=== PATIENT | male | born 1990 | race Caucasian/White ===

== ENCOUNTER 2024-09-25 14:41 | Inpatient (IN) | payer SELFPAY ==
[2024-09-25] MEDS ORDERED: ONDANSETRON *ODT* 4 MG TABLET SL PRN (15:13)
[2024-09-25] MEDS ORDERED: BISMUTH SUBSALICYLATE 524 MG/30 ML PO PRN (15:13)
[2024-09-25] MEDS ORDERED: ACETAMINOPHEN 325 MG TABLET (FP) PO PRN (15:13)
[2024-09-25] MEDS ORDERED: POLYETHYLENE GLYCOL (HEALTHYLAX) 3350 17 GM PACKET PO PRN (15:13)
[2024-09-25] MEDS ORDERED: IBUPROFEN 600 MG TABLET (FP) PO PRN (15:13)
[2024-09-25] MEDS ORDERED: BENZONATATE 200 MG CAPSULE PO PRN (15:13)
[2024-09-25] MEDS ORDERED: NALOXONE (NARCAN) HCL 4 MG/0.1 ML SPRAY NS PRN (15:13)
[2024-09-25] MEDS ORDERED: IBUPROFEN 400 MG TABLET (FP) PO PRN (15:13)
[2024-09-25] MEDS ORDERED: MAG HYDROX/AL HYDROX/SIMETH 30 ML UNIT-DOSE CUP PO PRN (15:13)
[2024-09-25] MEDS ORDERED: DICYCLOMINE HCL 10 MG CAPSULE PO PRN (15:13)
[2024-09-25] MEDS ORDERED: MAGNESIUM HYDROX 2400MG/30ML ORAL SUSPENSION 30 ML CUP PO PRN (15:13)
[2024-09-25] MEDS ORDERED: LOPERAMIDE HCL 2 MG CAPSULE PO PRN (15:13)
[2024-09-25] MEDS ORDERED: BENZOCAINE/MENTHOL (CHLORASEPTIC ) LOZENGE MM PRN (15:13)
[2024-09-25] MEDS ORDERED: guaiFENesin 600 MG TABLET.ER (FP) PO PRN (15:13)
[2024-09-25 15:32] VITALS: BMI 27.1
[2024-09-25] MEDS ORDERED: levETIRAcetam 500 MG TABLET (FP) PO ONE (18:29)
[2024-09-25] MEDS: PRENATAL VITAMINS W/ FOLIC ACID TABLET (FP) PO SCH (18:31)
[2024-09-25] MEDS: levETIRAcetam 500 MG TABLET (FP) PO ONE (18:32)
[2024-09-25] MEDS ORDERED: chlordiazePOXIDE HCL 25 MG CAPSULE ONE (18:52)
[2024-09-25] MEDS: chlordiazePOXIDE HCL 25 MG CAPSULE PO PRN (18:57)
[2024-09-25] MEDS: MELATONIN 5 MG TABLETS PO SCH (22:22)
[2024-09-25] MEDS: THIAMINE 100 MG TABLET PO SCH (22:22)
[2024-09-25] MEDS: chlordiazePOXIDE HCL 25 MG CAPSULE PO SCH (22:22)
[2024-09-26 12:30] LABS: HEMATOCRIT 41.9 % (40.1-51.0); HEMOGLOBIN 13.5 g/dL (13.7-17.5); MCHC 32.2 g/dl (32.3-36.5); MEAN CELL VOLUME 89.5 fl (79.0-92.2); MEAN PLT VOLUME 10.7 fl (9.4-12.4); PLATELET COUNT 149 x10^3/uL (163-337)
[2024-09-26 12:45] LABS: CHLORIDE 104 mmol/L (98-107); SODIUM 137 mmol/L (136-145)
[2024-09-26 12:53] LABS: CALCIUM 9.1 mg/dL (8.5-10.1)
[2024-09-26 12:54] LABS: ALBUMIN 3.6 g/dl (3.4-5.0); ANION GAP 6 mmol/L (4-13); BLOOD UREA NITROGEN 7.8 mg/dL (7-18); CO2 27 mmol/L (21-32); GLUCOSE,RANDOM 129 mg/dL (74-106)
[2024-09-26 12:57] LABS: SGOT/AST 88 U/L (15-37); SGPT/ALT 118 U/L (13-61)
[2024-09-26 12:58] LABS: BILIRUBIN,TOTAL 0.9 mg/dL (0.2-1); TOT PROT 7.4 g/dl (6.4-8.2)
[2024-09-26 13:00] LABS: ALK PHOS 130 U/L (45-117)
[2024-09-26 17:40] LABS: HIV INTERPRETATION NEGATIVE (NEGATIVE)
[2024-09-26] MEDS: hydrOXYzine PAMOATE 25 MG CAPSULE (FP) PO PRN (22:29)
[2024-09-27] MEDS: chlordiazePOXIDE HCL 25 MG CAPSULE PO SCH (05:32)
[2024-09-28] MEDS ORDERED: chlordiazePOXIDE HCL 10 MG CAPSULE PO PRN
[2024-09-28] MEDS: chlordiazePOXIDE HCL 10 MG CAPSULE PO SCH (05:36)
[2024-09-28] MEDS: METHOCARBAMOL 500 MG TABLET PO PRN (10:07)
[2024-09-28] MEDS: LACTULOSE 20 GM/30 ML UDC (FOR ORAL USE ONLY) PO SCH (13:51)
[2024-09-29] MEDS: chlordiazePOXIDE HCL 10 MG CAPSULE PO SCH (05:39)
[2024-09-29 11:12] LABS: ALBUMIN 3.5 g/dl (3.4-5.0)
[2024-09-29 11:14] LABS: BILIRUBIN,DIRECT 0.2 mg/dL (0.0-0.2)
[2024-09-29 11:16] LABS: BILIRUBIN,TOTAL 0.5 mg/dL (0.2-1)
[2024-09-29 11:17] LABS: TOT PROT 7.4 g/dl (6.4-8.2)
[2024-09-30] MEDS: chlordiazePOXIDE HCL 10 MG CAPSULE PO ONE (05:51)
[2024-09-30 08:50] VITALS: BP 111/72; PULSE 98; RESP 17; TEMP 97.6
[2024-09-30] MEDS: LACTULOSE 20 GM/30 ML UDC (FOR ORAL USE ONLY) PO SCH (10:04)
== END 2024-09-30 10:51 | disposition home or self-care (01) | DRG 774 ==
LOC: YASAS 14:41 → Y6N 17:26
PROVIDERS: ADMIT Allergy & Immunology; ATTEND Allergy & Immunology
PROC: HZ2ZZZZ Detoxification Services for Substance Abuse Treatment (ICD-10-PCS; principal; 2024-09-25)
DX: F10.230 Alcohol dependence with withdrawal, uncomplicated (principal); F14.20 Cocaine dependence, uncomplicated; F10.220 Alcohol dependence with intoxication, uncomplicated; F17.210 Nicotine dependence, cigarettes, uncomplicated; F19.282 Other psychoactive substance dependence with psychoactive substance-induced sleep disorder; F41.9 Anxiety disorder, unspecified; F32.A Depression, unspecified; E72.20 Disorder of urea cycle metabolism, unspecified; D64.9 Anemia, unspecified; R73.9 Hyperglycemia, unspecified; R74.01 Elevation of levels of liver transaminase levels; Z86.69 Personal history of other diseases of the nervous system and sense organs; Z59.01 Sheltered homelessness
CPT/HCPCS: 36415; 80053; 80076; 80305; 80307; 82140; 82947; 83036; 85027; 86780; 87389; 93005; 93010